=== PATIENT | female | born 1975 | race Caucasian/White ===

== ENCOUNTER 2016-07-23 13:13 | Emergency (ER) | payer OTHER ==
[~2016-07-23] VITALS: Ht 160 cm; Wt 79.4 kg
[~2016-07-23 13:13] MED LIST: GABA-283 PO; TRAZO50TA PO; VENL75CA PO
[2016-07-23 14:33] LABS: MEAN CORPUSCULAR HEMOGLOBIN 33.2 pg (27.0-33.0); MEAN CORPUSCULAR VOLUME 100.7 fl (80.0-96.0); RED CELL DISTRIBUTION WIDTH 12.9 % (11.5-14.5); WHITE BLOOD COUNT 11.1 K/mm3 (4.0-10.0)
[2016-07-23 14:37] LABS: CONTROL LINE HCG INT CTR LINE PRESENT
[2016-07-23 14:52] LABS: ALBUMIN 3.6 GM/DL (3.2-5.2); ALBUMIN/GLOBULIN RATIO 1.13 (1.00-1.93); ALKALINE PHOSPHATASE 77 U/L (45-117); ALT/SGPT 19 U/L (12-78); ANION GAP 8 MEQ/L (8-16); AST/SGOT 16 U/L (15-37); BILIRUBIN,DIRECT < 0.1 MG/DL (0.0-0.2); BILIRUBIN,TOTAL 0.2 MG/DL (0.2-1.0); BLOOD UREA NITROGEN 6 MG/DL (7-18); CARBON DIOXIDE LEVEL 25 MEQ/L (21-32); CHLORIDE LEVEL 111 MEQ/L (98-107); GLOMERULAR FILTRATION RATE > 60.0 (>60); GLUCOSE, FASTING 92 MG/DL (70-105); POTASSIUM SERUM 4.1 MEQ/L (3.5-5.1); SODIUM LEVEL 144 MEQ/L (136-145); TOTAL PROTEIN 6.8 GM/DL (6.4-8.2)
[2016-07-23 14:57] LABS: METHADONE URINE NEGATIVE (NEGATIVE)
[2016-07-23 22:53] VITALS: BP 109/71
== END 2016-07-23 22:57 | disposition home or self-care (01) ==
LOC: M ED 21:40
DX: F10.129 Alcohol abuse with intoxication, unspecified (principal); F14.10 Cocaine abuse, uncomplicated; Z79.899 Other long term (current) drug therapy

== ENCOUNTER 2016-08-02 14:34 | Inpatient (IN) | payer OTHER ==
[~2016-08-02] VITALS: Ht 160 cm; Wt 79.7 kg
[2016-08-02] MEDS: MULTIVITAMINS/MINERALS THERAP 1 TAB PO SCH (09:00)
[2016-08-02] MEDS: VENLAFAXINE **XR** 75MG CAPSULE PO SCH (09:00)
[2016-08-02] MEDS: THIAMINE 100 MG TAB PO SCH (09:00)
[2016-08-02] MEDS: VENLAFAXINE **XR** 37.5 MG CAPSULE PO SCH (09:00)
[2016-08-02] MEDS: FOLIC ACID 1 MG TAB PO SCH (09:00)
[2016-08-02] MEDS: NICOTINE 21MG/24HR 1 EA TRANSDERMAL TD SCH (09:00)
[2016-08-02] MEDS ORDERED: EFFE150C (15:02)
[2016-08-02] MEDS ORDERED: SERO1TAB (15:02)
[2016-08-02] MEDS ORDERED: BENA25CA4 (15:02)
[2016-08-02] MEDS ORDERED: VENL37.598 (15:02)
[2016-08-02] MEDS ORDERED: BENA25CA4 PO (16:42)
[2016-08-02] MEDS ORDERED: VENL150C43 PO (16:42)
[2016-08-02] MEDS ORDERED: VENL37.598 PO (16:42)
[2016-08-02] MEDS ORDERED: SERO1TAB PO (16:42)
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
[2016-08-02] MEDS ORDERED: chlordiazePOXIDE 25 MG CAP PO PRN (17:45)
[2016-08-02] MEDS ORDERED: MAALOX 30 ML SUSP *UDC PO PRN (17:45)
[2016-08-02] MEDS ORDERED: traZODone 50 MG TAB PO PRN (17:45)
[2016-08-02] MEDS ORDERED: MOM 30ML SUSPENSION UDC PO PRN (17:45)
[2016-08-02 22:21] VITALS: BP 116/81
[2016-08-03] MEDS: QUEtiapine FUMARATE 100 MG TAB PO SCH ×2 (00:09→21:21)
[2016-08-03] MEDS: diphenhydrAMINE 25 MG CAP PO SCH ×2 (00:10→21:22)
[2016-08-03] MEDS: ACETAMINOPHEN TAB 650MG DOSE (2X325MG) PO PRN ×2 (00:11→09:41)
[2016-08-03 06:00] VITALS: BP 108/63
[2016-08-03] MEDS: THIAMINE 100 MG TAB PO SCH (09:40)
[2016-08-03] MEDS: FOLIC ACID 1 MG TAB PO SCH (09:40)
[2016-08-03] MEDS: VENLAFAXINE **XR** 37.5 MG CAPSULE PO SCH (09:40)
[2016-08-03] MEDS: MULTIVITAMINS/MINERALS THERAP 1 TAB PO SCH (09:40)
[2016-08-03] MEDS: VENLAFAXINE **XR** 75MG CAPSULE PO SCH (09:40)
[2016-08-03] MEDS: NICOTINE 21MG/24HR 1 EA TRANSDERMAL TD SCH (09:41)
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
[2016-08-03 18:00] VITALS: BP 126/73
[2016-08-03] MEDS: IBUPROFEN 600 MG TAB PO PRN (21:23)
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
[2016-08-04 06:18] VITALS: BP 105/67
[2016-08-04] MEDS: FOLIC ACID 1 MG TAB PO SCH (08:03)
[2016-08-04] MEDS: VENLAFAXINE **XR** 37.5 MG CAPSULE PO SCH (08:03)
[2016-08-04] MEDS: NICOTINE 21MG/24HR 1 EA TRANSDERMAL TD SCH (08:03)
[2016-08-04] MEDS: THIAMINE 100 MG TAB PO SCH (08:03)
[2016-08-04] MEDS: MULTIVITAMINS/MINERALS THERAP 1 TAB PO SCH (08:03)
[2016-08-04] MEDS: VENLAFAXINE **XR** 75MG CAPSULE PO SCH (08:03)
[2016-08-04] MEDS: IBUPROFEN 600 MG TAB PO PRN ×2 (12:52→21:52)
--- NOTE | 2016-08-04 16:29 | IPN ---
DATE: 08/04/2016 40-year-old female with history of depression and alcohol dependency admitted on a 9.39 after she was evaluated for depression and suicidal ideation. Patient has psychomotor retardation and intermittent suicidal thoughts. Patient was displaying self-inflictive behavior. SUBJECTIVE: "I feel about the same." OBJECTIVE: No major changes from yesterday at admission. Patient is depressed. Patient remains by herself in her room with very little interaction with other patients and staff. Facial expression is restricted. Patient has psychomotor retardation. There is no evidence of auditory or visual hallucinations or delusions. MENTAL STATUS EXAMINATION: Patient is dressed in [facility]. Patient is cooperative. Patient has poor eye contact. Her speech is soft and monotone. Mood is depressed and anxious. Affect is restricted. Patient does not have auditory or visual hallucinations. Short-term and long-term memory are fair. Patient is fully oriented. Associations are intact. Thinking is logical. Thought content is appropriate. Patient is reporting intermittent suicidal thoughts. Denies homicidal ideation. Insight and judgment is limited. ASSESSMENT: 1. Depression. 2. Suicidal ideation. 3. Alcohol dependency. PLAN: 1. Continue with Seroquel 100 mg by mouth nightly. 2. Continue with Effexor XR 187.5 mg by mouth every morning. 3. Continue with Benadryl 25 mg by mouth nightly. 4. Continue with Librium as needed for possible alcohol withdrawal. 5. Continue with thiamine, folic acid, and multivitamin as per detoxification protocol.
[2016-08-04 18:07] VITALS: BP 108/68
[2016-08-04] MEDS: diphenhydrAMINE 25 MG CAP PO SCH (21:48)
[2016-08-04] MEDS: QUEtiapine FUMARATE 100 MG TAB PO SCH (21:48)
[2016-08-05 06:36] VITALS: BP 103/71
[2016-08-05] MEDS: FOLIC ACID 1 MG TAB PO SCH (09:07)
[2016-08-05] MEDS: VENLAFAXINE **XR** 75MG CAPSULE PO SCH (09:07)
[2016-08-05] MEDS: MULTIVITAMINS/MINERALS THERAP 1 TAB PO SCH (09:07)
[2016-08-05] MEDS: VENLAFAXINE **XR** 37.5 MG CAPSULE PO SCH (09:07)
[2016-08-05] MEDS: THIAMINE 100 MG TAB PO SCH (09:07)
[2016-08-05] MEDS: NICOTINE 21MG/24HR 1 EA TRANSDERMAL TD SCH (09:07)
[2016-08-05] MEDS: ACETAMINOPHEN TAB 650MG DOSE (2X325MG) PO PRN (14:47)
--- NOTE | 2016-08-05 15:20 | IPN ---
DATE OF SERVICE: 08/05/2016 40-year-old female with history of depression and alcohol dependency, admitted on a 9.39 legal status for depression and suicidal ideation. Patient has psychomotor retardation, intermittent suicidal thoughts. Patient was displaying self-inflictive behavior. SUBJECTIVE: "I'm feeling a little better." OBJECTIVE: Patient is improving slowly. Patient is getting out of bed more often. Patient is interacting better with other patients and staff. Patient's affect is improving. Patient no longer has psychomotor retardation. Patient is able to contract for safety during the interview. Patient denies auditory or visual hallucinations or delusions. MENTAL STATUS EXAMINATION: Patient is dressed in [facility]. Patient is cooperative during the interview. Has fair eye contact. Speech is normal in rate, volume. Articulation is quiet and spontaneous. Mood is depressed and anxious but improved. Affect is restricted but also improved. No delusions or hallucinations. Memory, attention, and concentration are fair. Patient is able to contract for safety during the interview and denied suicidal or homicidal ideation. Insight and judgment are limited. ASSESSMENT: 1. Depression. 2. Suicidal ideation. 3. Alcohol dependency. PLAN: 1. Continue Seroquel 100 mg by mouth nightly. 2. Continue Effexor XR 187.5 mg by mouth every morning. 3. Continue Benadryl 25 by mouth nightly. 4. Continue thiamine, folic acid, and multivitamins per detoxification protocol. 5. Discontinue Librium.
[2016-08-05 18:18] VITALS: BP 115/78
[2016-08-05] MEDS: diphenhydrAMINE 25 MG CAP PO SCH (21:01)
[2016-08-05] MEDS: QUEtiapine FUMARATE 100 MG TAB PO SCH (21:01)
[2016-08-05] MEDS: IBUPROFEN 600 MG TAB PO PRN (21:02)
[2016-08-06 06:58] VITALS: BP 108/57
[2016-08-06] MEDS: NICOTINE 21MG/24HR 1 EA TRANSDERMAL TD SCH (08:44)
[2016-08-06] MEDS: FOLIC ACID 1 MG TAB PO SCH (08:44)
[2016-08-06] MEDS: VENLAFAXINE **XR** 37.5 MG CAPSULE PO SCH (08:44)
[2016-08-06] MEDS: MULTIVITAMINS/MINERALS THERAP 1 TAB PO SCH (08:44)
[2016-08-06] MEDS: THIAMINE 100 MG TAB PO SCH (08:44)
[2016-08-06] MEDS: VENLAFAXINE **XR** 75MG CAPSULE PO SCH (08:44)
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
== END 2016-08-06 13:50 | disposition home or self-care (01) | DRG 754 ==
LOC: M ED 15:11 → M ED INP 17:39 → M PSY 22:12
PROVIDERS: ADMIT Psychiatry & Neurology Psychiatry; ATTEND Psychiatry & Neurology Psychiatry
DX: F32.9 Major depressive disorder, single episode, unspecified (principal); K51.90 Ulcerative colitis, unspecified, without complications; F10.20 Alcohol dependence, uncomplicated; F12.10 Cannabis abuse, uncomplicated; F14.10 Cocaine abuse, uncomplicated; G43.909 Migraine, unspecified, not intractable, without status migrainosus; F17.210 Nicotine dependence, cigarettes, uncomplicated

== ENCOUNTER 2016-10-13 11:22 | Outpatient (CLI) | payer OTHER ==
[~2016-10-13] VITALS: Ht 160 cm; Wt 79.4 kg
[~2016-10-13 11:22] MED LIST changes: +BENA25CA4; +BENA25CA4 PO; +EFFE150C; +EFFE150C PO; +EFFE37.527 PO; +MIRA33504 PO; +NS 1,000 ML IV ONE; +PRAM0.252 PO; +SERO1TAB; +SERO1TAB PO; +VENL150C43 PO; +VENL37.598; +VENL37.598 PO; -VENL75CA PO; +VENL75CA2 PO
[2016-10-13] MEDS ORDERED: PROPOFOL 200 MG/20 ML VIAL As Ordered ONE (13:28)
[2016-10-13] MEDS ORDERED: LIDOCAINE 2% INJ 100 MG/5 ML SDV (FOR ANES.) As Ordered ONE (13:48)
--- NOTE | 2016-10-13 14:09 | ROOR ---
Patient Name: Paulina Hector Procedure Date: 10/13/2016 1:39 PM Date of : 1975 Age: 41 Room: [facility] Gender: Female Note Status: Finalized Procedure: Colonoscopy Indications: Abnormal CT of the GI tract, Generalized abdominal pain, Constipation Providers: Aaron MARTIN MD Referring MD: ALISSA MESSER MD Requesting Provider: Medicines: Monitored Anesthesia Care Complications: No immediate complications. Procedure: Pre-Anesthesia Assessment: - The heart rate, respiratory rate, oxygen saturations, blood pressure, adequacy of pulmonary ventilation, and response to care were monitored throughout the procedure. The Colonoscope was introduced through the anus and advanced to 5 cm into the ileum. The colonoscopy was performed without difficulty. The patient tolerated the procedure well. The quality of the bowel preparation was good. Findings: The perianal and digital rectal examinations were normal. The terminal ileum appeared normal. A small scar was found in the entire colon. A few sessile polyps were found in the sigmoid colon and splenic flexure. The polyps were 2 to 4 mm in size. Biopsies were taken with a cold forceps for histology. Internal hemorrhoids were found during retroflexion. The hemorrhoids were medium-sized. Impression: - The examined portion of the ileum was normal. - Scattered mucosal scarring with otherwise normal appearing mucosa in the entire colon suggestive of a previous history of colitis. This appears presently inactive/healed.- Biopsied. - A few 2 to 4 mm pseudo polyps in the sigmoid colon and at the splenic flexure. Biopsied. - Internal hemorrhoids. Recommendation: - Miralax 1 capful (17 grams) in 8 ounces of water twice a day indefinitely. - Telephone endoscopist for pathology results in 2 weeks. Aaron Martin MD Aaron MARTIN MD 10/13/2016 2:08:55 PM This report has been signed electronically. Number of Addenda: 0 Note Initiated On: 10/13/2016 1:39 PM Estimated Blood Loss: Estimated blood loss: none.
[2016-10-13 14:30] VITALS: BP 123/84
== END 2016-10-13 14:40 | disposition home or self-care (01) ==
LOC: M OPP 11:22
PROVIDERS: ATTEND Internal Medicine Gastroenterology
DX: R93.3 Abnormal findings on diagnostic imaging of other parts of digestive tract (principal); R10.84 Generalized abdominal pain; K59.00 Constipation, unspecified; D12.3 Benign neoplasm of transverse colon; D12.5 Benign neoplasm of sigmoid colon; K64.8 Other hemorrhoids; K63.89 Other specified diseases of intestine; K62.5 Hemorrhage of anus and rectum; R01.1 Cardiac murmur, unspecified; K51.90 Ulcerative colitis, unspecified, without complications; R12 Heartburn; G25.81 Restless legs syndrome; G43.909 Migraine, unspecified, not intractable, without status migrainosus; R06.83 Snoring; F17.210 Nicotine dependence, cigarettes, uncomplicated; F10.21 Alcohol dependence, in remission; F14.21 Cocaine dependence, in remission; Z85.038 Personal history of other malignant neoplasm of large intestine; Z79.899 Other long term (current) drug therapy

== ENCOUNTER → 2020-11-28 | Outpatient (CLI) | payer OTHER ==
[~2020-11-28] MED LIST changes: -EFFE150C; -EFFE150C PO; +EFFE150C2; +EFFE150C2 PO; +EFFE37.5 PO; -EFFE37.527 PO; +EMER1PAK6 PO; +HYDR50TA70 PO; +MAGN1CAP PO; -NS 1,000 ML IV ONE; -PRAM0.252 PO; +PRAM0.255 PO; +SELENIUM PO; +TRAZ1TAB10 PO; -TRAZO50TA PO; +[UNRECOGNIZED DRUG - CODE] PO
== END ==
LOC: M LABSMTC 10:18
PROVIDERS: ATTEND Anesthesiology
DX: Z01.812 Encounter for preprocedural laboratory examination (principal); Z20.822 Contact with and (suspected) exposure to COVID-19

== ENCOUNTER 2020-12-03 11:12 | Day surgery (SDC) | payer OTHER ==
[~2020-12-03] VITALS: Ht 160 cm; Wt 89.4 kg
--- NOTE | 2020-12-03 12:56 | ROOR ---
Patient Name: Paulina Hector Procedure Date: 12/03/2020 12:40 PM Date of : 1975 Age: 45 Room: [facility] Gender: Female Note Status: Finalized Procedure: Colonoscopy Indications: Suspected ulcerative colitis, Abnormal CT of the GI tract Providers: Aaron Martin MD Referring MD: ALISSA MESSER MD Requesting Provider: Medicines: Monitored Anesthesia Care Complications: No immediate complications. Procedure: Pre-Anesthesia Assessment: - The heart rate, respiratory rate, oxygen saturations, blood pressure, adequacy of pulmonary ventilation, and response to care were monitored throughout the procedure. The Colonoscope was introduced through the anus and advanced to 15 cm into the ileum. The colonoscopy was performed without difficulty. The patient tolerated the procedure well. The quality of the bowel preparation was good. Findings: The perianal and digital rectal examinations were normal. The terminal ileum appeared normal. Inflammation characterized by loss of vascularity, pseudopolyps and scarring was found in a continuous and circumferential pattern from the rectum to the cecum. No sites were spared. When compared to previous examinations, the findings are quiescent. Biopsies were taken with a cold forceps for histology. The terminal ileum appeared normal. Impression: - The examined portion of the ileum was normal. - Pancolitis ulcerative colitis, There is very little obvious active inflammation. Extensive mucosal scarring throughout. Many pseudopolyps throughout.(pseudopolyps predominantly in the transverse and descending colon). Segmental biopsies performed throughout. - The examined portion of the ileum was normal. Recommendation: - Await pathology results. - Repeat colonoscopy in 1 year for surveillance. - Due to very numerous pseudopolyps, screening for adenoma is very difficult if not impossible. I would recommend colonoscopy every year with random segmental biopsies). - Telephone endoscopist for pathology results in 2 weeks. Procedure Code(s): --- Professional --- 68279, Colonoscopy, flexible; with biopsy, single or multiple Diagnosis Code(s): --- Professional --- R93.3, Abnormal findings on diagnostic imaging of other parts of digestive tract K51.00, Ulcerative (chronic) pancolitis without complications CPT copyright 2019 [employer]. All rights reserved. The codes documented in this report are preliminary and upon leather drier review may be revised to meet current compliance requirements. Aaron Martin MD Aaron Martin MD 12/03/2020 12:55:38 PM Electronically signed by Aaron Martin MD Number of Addenda: 0 Note Initiated On: 12/03/2020 12:40 PM Estimated Blood Loss: Estimated blood loss: none.
[2020-12-03] MEDS ORDERED: LIDOCAINE 2% 100MG/5ML SDV (FOR ANES.) As Ordered ONE (13:04)
[2020-12-03] MEDS ORDERED: propofoL 200 MG/20 ML VIAL As Ordered ONE (13:04)
[2020-12-03 13:10] VITALS: BP 148/81
[2020-12-04] MEDS ORDERED: NS 1,000 ML IV ONE (06:00)
== END 2020-12-03 14:00 | disposition home or self-care (01) ==
LOC: M OPP 11:12
PROVIDERS: ATTEND Internal Medicine Gastroenterology
DX: K51.00 Ulcerative (chronic) pancolitis without complications (principal); R93.3 Abnormal findings on diagnostic imaging of other parts of digestive tract; Z79.899 Other long term (current) drug therapy; Z91.048 Other nonmedicinal substance allergy status; F17.210 Nicotine dependence, cigarettes, uncomplicated

== ENCOUNTER → 2021-10-10 | Outpatient (REF) | payer OTHER ==
[2021-10-10 12:59] LABS: APPEARANCE, URINE CLEAR (CLEAR); BACTERIA, URINE AUTO NEGATIVE (NEGATIVE); BILIRUBIN, URINE AUTO NEGATIVE (NEGATIVE); BLOOD, URINE BLOOD 1+ (NEGATIVE); COLOR, URINE STRAW (YELLOW); GLUCOSE, URINE (UA) AUTO NEGATIVE (NEGATIVE); KETONE, URINE AUTO TRACE mg/dL (NEGATIVE); LEUKOCYTE ESTERASE, URINE AUTO NEGATIVE (NEGATIVE); NITRITE, URINE AUTO NEGATIVE (NEGATIVE); PROTEIN, URINE AUTO NEGATIVE (NEGATIVE); RBC, URINE AUTO 0 /HPF (0-3); SPECIFIC GRAVITY URINE AUTO 1.006 (1.002-1.035); SQUAMOUS EPITHELIAL CELL UR AU 0 /HPF (0-6); UROBILINOGEN, URINE AUTO 0.2 mg/dL (0.0-2.0); WBC, URINE AUTO 0 /HPF (0-3)
[2021-10-10 13:01] LABS: BASO % 0.3 % (0.0-1.0); EOS # 0.3 10^3/uL (0.0-0.5); EOS % 2.9 % (0.0-3.0); HEMATOCRIT 49.6 % (36.0-47.0); HEMOGLOBIN 15.9 g/dl (12.0-15.5); LYMPH # 2.5 10^3/uL (1.5-5.0); LYMPH % 28.5 % (24.0-44.0); MEAN CORPUSCULAR HEMOGLOBIN 29.8 pg (27.0-33.0); MEAN CORPUSCULAR HGB CONC 32.1 g/dl (32.0-36.5); MEAN CORPUSCULAR VOLUME 93.1 fl (80.0-96.0); MONO # 0.3 10^3/uL (0.0-0.8); MONO % 3.4 % (2.0-8.0); NEUTROPHILS # 5.6 10^3/uL (1.5-8.5); NEUTROPHILS % 64.6 % (36.0-66.0); PLATELET COUNT, AUTOMATED 251 10^3/uL (150-450); RED BLOOD COUNT 5.33 10^6/uL (4.00-5.40); WHITE BLOOD COUNT 8.6 10^3/uL (4.0-10.0)
[2021-10-10 14:54] LABS: TOTAL PROTEIN 7.1 GM/DL (6.4-8.2)
[2021-10-13 11:03] LABS: ALBUMIN 4.51 GM/DL (3.29-5.55); ALBUMIN % 63.5 % (55.8-66.1); ALPHA-1-GLOBULIN % 4.2 % (2.9-4.9); ALPHA-2-GLOBULINS 0.66 GM/DL (0.42-0.99); ALPHA-2-GLOBULINS % 9.3 % (7.1-11.8); BETA-1-GLOBULINS 0.43 GM/DL (0.28-0.60); BETA-2-GLOBULINS 0.26 GM/DL (0.19-0.55); BETA-2-GLOBULINS % 3.7 % (3.2-6.5); GAMMA GLOBULIN % 13.3 % (11.1-18.8); GAMMA GLOBULINS 0.94 GM/DL (0.65-1.58)
[2021-10-14 17:07] LABS: BETA-2 GLYCOPROTEIN I ABY IGA <9 (0-25); BETA-2 GLYCOPROTEIN I ABY IGG 10 (0-20); BETA-2 GLYCOPROTEIN I ABY IGM <9 (0-32); CARDIOLIPIN IGA ANTIBODY <9 APL U/mL (0-11); CARDIOLIPIN IGG ANTIBODY 20 GPL U/mL (0-14); CARDIOLIPIN IGM ANTIBODY 36 MPL U/mL (0-12)
== END ==
LOC: M SFHCRHEU 10:55
PROVIDERS: ATTEND Internal Medicine
DX: R31.9 Hematuria, unspecified (principal)

== ENCOUNTER → 2021-12-31 | Outpatient (CLI) | payer OTHER | LOC: M LABSMTC 10:36 | PROVIDERS: ATTEND Anesthesiology | DX: Z01.812 Encounter for preprocedural laboratory examination (principal); Z20.822 Contact with and (suspected) exposure to COVID-19 ==

== ENCOUNTER 2022-01-05 08:34 | Day surgery (SDC) | payer OTHER ==
[~2022-01-05] VITALS: Ht 160 cm; Wt 94.3 kg
[~2022-01-05 08:34] MED LIST changes: +LIDOCAINE 2% 100MG/5ML SDV (FOR ANES.) As Ordered ONE; +NS 1,000 ML IV ONE; +propofoL 500 MG/50 ML VIAL As Ordered ONE
[2022-01-05] MEDS ORDERED: PHENYLephrine 500MCG 5ML (100MCG/ML) SYRINGE As Ordered ONE (10:12)
[2022-01-05 10:59] VITALS: BP 113/85
== END 2022-01-05 11:10 | disposition home or self-care (01) ==
LOC: M OPP 08:34
PROVIDERS: ATTEND Internal Medicine Gastroenterology
DX: K51.00 Ulcerative (chronic) pancolitis without complications (principal); K52.89 Other specified noninfective gastroenteritis and colitis; Z79.899 Other long term (current) drug therapy; Z91.048 Other nonmedicinal substance allergy status; Z86.19 Personal history of other infectious and parasitic diseases; G25.81 Restless legs syndrome; G43.909 Migraine, unspecified, not intractable, without status migrainosus; F32.9 Major depressive disorder, single episode, unspecified; F41.9 Anxiety disorder, unspecified; F17.200 Nicotine dependence, unspecified, uncomplicated
CPT/HCPCS: 45380; 88305; J2370

== ENCOUNTER → 2022-05-12 | Outpatient (CLI) | payer OTHER ==
[~2022-05-12] MED LIST changes: -LIDOCAINE 2% 100MG/5ML SDV (FOR ANES.) As Ordered ONE; -NS 1,000 ML IV ONE; -propofoL 500 MG/50 ML VIAL As Ordered ONE
== END ==
LOC: M SLEEP HO 10:38
PROVIDERS: ATTEND Nurse Practitioner Family
DX: R06.83 Snoring (principal)

== ENCOUNTER → 2022-08-31 | Outpatient (CLI) | payer OTHER ==
[~2022-08-31] MED LIST changes: +ISOVUE-370 76% 100ML VIAL As Ordered ONE
== END ==
LOC: M RAD 07:28
PROVIDERS: ATTEND Registered Nurse
DX: R79.1 Abnormal coagulation profile (principal)
CPT/HCPCS: 71275; Q9967

== ENCOUNTER → 2022-10-17 | Outpatient (CLI) | payer OTHER ==
[~2022-10-17] MED LIST changes: -GABA-283 PO; +GABA-284 PO; -ISOVUE-370 76% 100ML VIAL As Ordered ONE
== END ==
LOC: M SLEEP 20:00
PROVIDERS: ATTEND Nurse Practitioner Family
DX: G47.33 Obstructive sleep apnea (adult) (pediatric) (principal)

== ENCOUNTER 2023-05-20 11:46 | Day surgery (SDC) | payer OTHER ==
[~2023-05-20] VITALS: Ht 160 cm; Wt 103.0 kg
[~2023-05-20 11:46] MED LIST changes: -EFFE150C2; -EFFE150C2 PO; +EFFE150C3; +EFFE150C3 PO; -EFFE37.5 PO; +EFFE37.52 PO; +HYDR200T46 PO; +MELA10CA6 PO; +OMEP-173 PO; +ROSU10TA6 PO
[2023-05-20] MEDS: NS 1,000 ML IV ONE (12:26)
[2023-05-20] MEDS ORDERED: fentaNYL 100 MCG/2 ML INJECTION As Ordered ONE (13:22)
[2023-05-20] MEDS ORDERED: propofoL 200 MG/20 ML VIAL As Ordered ONE (13:49)
[2023-05-20] MEDS ORDERED: ePHEDrine SULFATE 25 MG/5 ML(5MG/ML) SYRINGE As Ordered ONE (13:49)
[2023-05-20] MEDS ORDERED: PHENYLephrine 500MCG 5ML (100MCG/ML) SYRINGE As Ordered ONE (13:49)
[2023-05-20 13:57] VITALS: TEMP 98.2
[2023-05-20 14:17] VITALS: BP 104/67; O2SAT 98
== END 2023-05-20 14:21 | disposition home or self-care (01) ==
LOC: M OPP 11:46
PROVIDERS: ATTEND Internal Medicine Gastroenterology
DX: K51.00 Ulcerative (chronic) pancolitis without complications (principal); D12.6 Benign neoplasm of colon, unspecified; F17.200 Nicotine dependence, unspecified, uncomplicated; G47.30 Sleep apnea, unspecified; Z99.89 Dependence on other enabling machines and devices; Z79.02 Long term (current) use of antithrombotics/antiplatelets; Z79.899 Other long term (current) drug therapy; Z91.048 Other nonmedicinal substance allergy status
CPT/HCPCS: 45385; 88305; J2371; J3010

== ENCOUNTER → 2024-03-16 | Outpatient (CLI) | payer OTHER ==
[~2024-03-16] MED LIST changes: +METHACHOLINE KIT (6 VIAL.NEB PREMIX) INH ONE; -ROSU10TA6 PO; +ROSU10TA61 PO
== END ==
LOC: M CARPUL 08:40
PROVIDERS: ATTEND Physician Assistant
DX: R06.02 Shortness of breath (principal)
CPT/HCPCS: 94070; 95070; J7674

== ENCOUNTER → 2024-05-31 | Outpatient (REF) | payer OTHER ==
[~2024-05-31] MED LIST changes: -METHACHOLINE KIT (6 VIAL.NEB PREMIX) INH ONE
== END ==
LOC: M LAB REF 10:10
PROVIDERS: ATTEND Physician Assistant Medical
DX: R19.4 Change in bowel habit (principal)

== ENCOUNTER 2024-07-11 09:43 | Day surgery (SDC) | payer OTHER ==
[~2024-07-11] VITALS: Ht 160 cm; Wt 106.6 kg
[~2024-07-11 09:43] MED LIST changes: +ALBU8.5H INH; +DHEA50TA PO; +DIPH50CA PO; +FLUT1BLS17 INH; +GLYCOPYRROLATE INJ 0.2 MG/ML 2 ML VIAL As Ordered ONE; +LIDOCAINE 2% 100MG/5ML SDV (FOR ANES.) As Ordered ONE; +fentaNYL 100 MCG/2 ML INJECTION As Ordered ONE; +propofoL 200 MG/20 ML VIAL As Ordered ONE
[2024-07-11] MEDS ORDERED: ASPI81CH33 PO (10:01)
[2024-07-11 11:20] VITALS: TEMP 97.4
[2024-07-11 11:39] VITALS: BP 124/81; O2SAT 98
== END 2024-07-11 11:39 | disposition home or self-care (01) ==
LOC: M OPP 09:43
PROVIDERS: ATTEND Internal Medicine Gastroenterology
DX: K63.89 Other specified diseases of intestine (principal); K51.40 Inflammatory polyps of colon without complications; K51.00 Ulcerative (chronic) pancolitis without complications; R12 Heartburn; R10.9 Unspecified abdominal pain; K44.9 Diaphragmatic hernia without obstruction or gangrene; Z91.09 Other allergy status, other than to drugs and biological substances; Z79.899 Other long term (current) drug therapy; F41.9 Anxiety disorder, unspecified; F32.A Depression, unspecified; F17.210 Nicotine dependence, cigarettes, uncomplicated; J45.909 Unspecified asthma, uncomplicated; G47.30 Sleep apnea, unspecified
CPT/HCPCS: 43235; 45380; 88305; J1596; J3010

== ENCOUNTER → 2024-11-09 | Outpatient (REF) | payer OTHER ==
[~2024-11-09] MED LIST changes: +ASPI81CH33 PO; -DIPH50CA PO; +DIPH50CA31 PO; -GLYCOPYRROLATE INJ 0.2 MG/ML 2 ML VIAL As Ordered ONE; -LIDOCAINE 2% 100MG/5ML SDV (FOR ANES.) As Ordered ONE; -fentaNYL 100 MCG/2 ML INJECTION As Ordered ONE; -propofoL 200 MG/20 ML VIAL As Ordered ONE
[2024-11-09 15:46] LABS: APPEARANCE, URINE CLEAR (CLEAR); BACTERIA, URINE AUTO NEGATIVE (NEGATIVE); BILIRUBIN, URINE AUTO NEGATIVE (NEGATIVE); BLOOD, URINE BLOOD NEGATIVE (NEGATIVE); GLUCOSE, URINE (UA) AUTO NEGATIVE (NEGATIVE); KETONE, URINE AUTO NEGATIVE (NEGATIVE); LEUKOCYTE ESTERASE, URINE AUTO NEGATIVE (NEGATIVE); MUCUS, URINE SMALL (NEGATIVE); NITRITE, URINE AUTO NEGATIVE (NEGATIVE); PROTEIN, URINE AUTO NEGATIVE (NEGATIVE); RBC, URINE AUTO 0 /HPF (0-3); SPECIFIC GRAVITY URINE AUTO 1.006 (1.002-1.035); SQUAMOUS EPITHELIAL CELL UR AU 1 /HPF (0-6); UROBILINOGEN, URINE AUTO 0.2 mg/dL (0.0-2.0); WBC, URINE AUTO 1 /HPF (0-3)
[2024-11-09 15:50] LABS: BASO # 0.0 10^3/uL (0.0-0.2); BASO % 0.4 % (0.0-1.0); EOS # 0.1 10^3/uL (0.0-0.5); EOS % 1.3 % (0.0-3.0); LYMPH # 2.8 10^3/uL (1.5-5.0); LYMPH % 34.4 % (24.0-44.0); MONO # 0.3 10^3/uL (0.0-0.8); MONO % 3.1 % (2.0-8.0); NEUTROPHILS # 4.9 10^3/uL (1.5-8.5); NEUTROPHILS % 60.4 % (36.0-66.0); PLATELET COUNT, AUTOMATED 263 10^3/uL (150-450)
[2024-11-09 15:55] LABS: ALT/SGPT 33 U/L (7.0-40); AST/SGOT 21 U/L (<34); C REACTIVE PROTEIN QUANTITATIV < 0.50 MG/DL (<1.0); CALCIUM LEVEL 9.3 MG/DL (8.5-10.1); CARBON DIOXIDE LEVEL 28 MMOL/L (20-31); CHLORIDE LEVEL 105 MMOL/L (98-107); COMPLEMENT C4 16.2 MG/DL (12-36); CREATININE FOR GFR 0.64 MG/DL (0.55-1.30); GLOMERULAR FILTRATION RATE > 90.0 (>58); POTASSIUM SERUM 3.9 MMOL/L (3.5-5.1); SODIUM LEVEL 142 MMOL/L (136-145)
[2024-11-09 15:57] LABS: TOTAL 25(OH) VITAMIN D 11.3 NG/ML (20.0-100.0)
[2024-11-09 16:05] LABS: ERYTHROCYTE SEDIMENTATION RATE 24 mm/hr (0-20)
[2024-11-09 16:40] LABS: TOTAL PROTEIN,RANDOM URINE < 6.0 MG/DL (0.0-14.0)
[2024-11-13 14:12] LABS: COMPLEMENT TOTAL (CH50) 57 U/mL (31-60)
[2024-11-17 07:57] LABS: PTT-LA 45 sec (<=40)
== END ==
LOC: M SFHCRHEU 12:31
PROVIDERS: ATTEND Internal Medicine
DX: R76.8 Other specified abnormal immunological findings in serum (principal); E55.9 Vitamin D deficiency, unspecified; M06.4 Inflammatory polyarthropathy